=== PATIENT | female | born 1955 | race Caucasian/White ===

== ENCOUNTER → 2017-07-25 | Outpatient (CLI) | payer MEDICARE, OTHER ==
[~2017-07-25] MED LIST: CIPR500T3 PO; LACT20SO13 PO; MESA400T2 PO; NADO20TA PO; OMEP20CA9 PO; RIFA550T4 PO; URSO300C27 PO
== END | disposition home or self-care (01) ==
LOC: CFH 07:46
PROVIDERS: ATTEND Internal Medicine Gastroenterology
DX: R16.1 Splenomegaly, not elsewhere classified (principal); K75.4 Autoimmune hepatitis; Z90.49 Acquired absence of other specified parts of digestive tract
CPT/HCPCS: 76700